=== PATIENT | male | born 1970 | race Caucasian/White ===

== ENCOUNTER 2025-02-08 07:03 | Emergency (ER) | payer OTHER ==
[~2025-02-08] VITALS: Ht 182.9 cm; Wt 99.1 kg
[2025-02-08] MEDS ORDERED: RABIES VACCINE HUMAN 2.5 INTERNATIONAL UNITS/ML VIAL (IMOVAX) IM ONE (07:15)
[2025-02-08] MEDS: RABIES VACCINE HUMAN 2.5 INTERNATIONAL UNITS/ML VIAL (IMOVAX) IM ONE (07:42)
[2025-02-08 07:49] VITALS: BP 134/97; TEMP 97.9; O2SAT 97
== END 2025-02-08 07:52 | disposition home or self-care (01) ==
LOC: M ED 07:03
DX: Z20.3 Contact with and (suspected) exposure to rabies (principal); Z29.14 Encounter for prophylactic rabies immune globulin; Z23 Encounter for immunization; K21.9 Gastro-esophageal reflux disease without esophagitis; F10.10 Alcohol abuse, uncomplicated